=== PATIENT | male | born 1965 | race Caucasian/White ===

== ENCOUNTER 2018-10-04 04:45 | Emergency (ER) | payer OTHER ==
[2018-10-04 05:10] LABS: Basophils % (Auto) 0.4 % (0.0-1.8); Eosinophils # (Auto) 0.1 K/mm3 (0.0-0.4); Hemoglobin 17.1 gm/dl (11.8-15.2); Lymphocytes # (Auto) 1.6 K/mm3 (1.2-5.4); Lymphocytes % (Auto) 14.4 % (13.4-35.0); Mean Corpuscular HGB Conc 35 % (32-34); Mean Corpuscular Volume 89 fl (84-94); Monocytes # (Auto) 0.5 K/mm3 (0.0-0.8); Monocytes % (Auto) 4.1 % (0.0-7.3); Platelet Count 244 K/mm3 (140-440); Red Blood Count 5.52 M/mm3 (3.65-5.03); Red Cell Distribution Width 12.8 % (13.2-15.2)
[2018-10-04 05:20] LABS: Amorphous Crystals,Urine Few; Bacteria,Urine 1+ /HPF (Negative); Bilirubin,Urine NEG (Negative); Blood,Urine NEG (Negative); Color,Urine Yellow (Yellow); Mucus,Urine 3+ /HPF; Protein,Urine <15 mg/dL mg/dL (Negative); Urobilinogen,Urine < 2.0 mg/dL (<2.0)
[2018-10-04 05:25] LABS: RBC,Urine < 1.0 /HPF (0.0-6.0)
[2018-10-04 05:31] LABS: Alanine Aminotransferase 28 units/L (7-56); Albumin 4.2 g/dL (3.9-5); BUN/Creatinine Ratio 17; Blood Urea Nitrogen 12 mg/dL (9-20); Hemolysis Index 11
[2018-10-04] MEDS ORDERED: TYLENOL PO ONE (05:59)
[2018-10-04] MEDS ORDERED: TYLENOL ONE (06:03)
[2018-10-04] MEDS ORDERED: TORADOL IV ONE (09:00)
[2018-10-04] MEDS ORDERED: ZOFRAN IV ONE (09:00)
[2018-10-04] MEDS ORDERED: NACL 0.9% 1000 ML 1,000 ML IV ONE (09:00)
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
--- NOTE | 2018-10-04 09:54 | Cat Scan Report ---
CT ABDOMEN PELVIS WITHOUT CONTRAST: HISTORY: abdominal pain. COMPARISON: 01/22/16. TECHNIQUE: Helical CT in 1.25mm intervals without IV contrast. Sagittal and coronal reconstructions. FINDINGS: Lung bases: Normal. Liver: Normal. Biliary system: Normal. Pancreas: Normal. Spleen: Normal. Kidneys/ureters/bladder: The kidneys are normal size, contour and position. There is fear to be a few punctate calyceal stones in both kidneys. No ureteral stones or hydronephrosis. No focal renal lesion. The bladder and prostate gland are unremarkable. Adrenal glands: Normal. Aorta: Normal. Intestines: No oral contrast was administered which limits this exam. There are a few mildly dilated loops of distal small bowel in the lower abdomen measuring up to 3.2 cm in diameter. These bowel loops contain moderate debris and fluid. No obvious transition point is detected. The stomach, proximal small bowel loops and colon are unremarkable. Appendix: Normal. Pelvic viscera: Normal. Ascites: Trace pelvic ascites. Adenopathy: None. Musculoskeletal: Intact. Minimal degenerative change. IMPRESSION: Findings concerning for a mild distal partial small bowel obstruction. See above. Punctate nonobstructing renal stones are suspected Trace ascites.
[2018-10-04 12:10] VITALS: BP 124/85
== END 2018-10-04 12:51 | disposition home or self-care (01) ==
LOC: ED 04:45
DX: K56.600 Partial intestinal obstruction, unspecified as to cause (principal); N20.0 Calculus of kidney; Z98.890 Other specified postprocedural states
CPT/HCPCS: 36415; 74176; 80053; 81001; 85025; 96374; 96375; 99284; J1885; J2405; J7030

== ENCOUNTER 2018-10-04 18:44 | Emergency (ER) | payer SELFPAY ==
[2018-10-04 19:33] VITALS: BP 129/94
== END 2018-10-04 23:54 | disposition left against medical advice (07) ==
LOC: ED 18:44
DX: R10.9 Unspecified abdominal pain (principal); Z53.21 Procedure and treatment not carried out due to patient leaving prior to being seen by health care provider